=== PATIENT | female | born 1985 | race Caucasian/White ===

== ENCOUNTER 2016-09-30 08:13 | Emergency (ER) | payer OTHER ==
--- NOTE | 2016-09-30 09:03 | UC ---
Lower Extremity/Ankle HPI - HPI Summary HPI Summary: SUDDEN ONSET OF RIGHT GREAT TOE PAIN YESTERDAY. HAS REDNESS AND SWELLING. DENIES ANY INJURY OR TRAUMA. NO H/O PREVIOUS RIGHT GREAT TOE/FOOT INJURIES. NO H /O GOUT. HAS PAIN WHEN WALKING AND STANDING ON IT. - History of Current Complaint Chief Complaint: UCLowerExtremity Stated Complaint: FOOT INJURY Time Seen by Provider: 09/30/16 08:57 Hx Obtained From: Patient Hx Last Menstrual Period: 09/19/16 Onset/Duration: Sudden Onset, Lasting Days, Still Present Severity Initially: Moderate Severity Currently: Moderate Pain Intensity: 9 Pain Scale Used: 0-10 Numeric Aggravating Factor(s): Standing, Ambulation Alleviating Factor(s): Rest Able to Bear Weight: Yes - Allergies/Home Medications Allergies/Adverse Reactions: Allergies Allergy/AdvReac Type Severity Reaction Status Date / Time Cefaclor [From Ceclor] Allergy Unknown Unknown Verified 06/30/16 09:54 Reaction Details PMH/Surg Hx/FS Hx/Imm Hx Respiratory History Of: Reports: Asthma - ON INHALERS Psychological History Of: Denies: Anxiety, Depression - Surgical History Surgical History: Yes Surgery Procedure, Year, and Place: -2010 [facility], [place] IMPLANT[place] - Family History Known Family History: Negative: Hypertension - Social History Alcohol Use: Rare Substance Use Type: None Smoking Status (MU): Never Smoked Tobacco Review of Systems Constitutional: Negative Skin: Other - RIGHT FOOT REDNESS Respiratory: Negative Cardiovascular: Negative Gastrointestinal: Negative Musculoskeletal: Arthralgia, Decreased ROM, Edema All Other Systems Reviewed And Are Negative: Yes Physical Exam Triage Information Reviewed: Yes Appearance: Well-Appearing, No Pain Distress, Well-Nourished Vital Signs: Initial Vital Signs Temp 98.1 F 09/30/16 08:22 Pulse 84 09/30/16 08:22 Resp 18 09/30/16 08:22 BP 114/81 09/30/16 08:22 Pulse Ox 98 09/30/16 08:22 Vital Signs Reviewed: Yes Eyes: Positive: Conjunctiva Clear ENT: Positive: Hearing grossly normal Neck: Positive: Supple Respiratory: Positive: No respiratory distress, No accessory muscle use Cardiovascular: Positive: Pulses Normal - 2+ DP PULSES Abdomen Description: Positive: Soft Musculoskeletal: Positive: ROM Limited @ - RIGHT TOES, Edema @ - RIGHT GREAT TOE AND RIGHT 2ND TOE, Other: - TTP RIGHT GREAT TOE Neurological: Positive: Alert Psychological: Positive: Age Appropriate Behavior Skin: Positive: Other - ERYTHEMA OF ENTIRE RIGHT FOOT Diagnostics - Radiology RIGHT GREAT TOE XRAY Xray Interpretation: Positive (See Comments) - MILD SOFT TISSUE SWELLING BUT NO FRACTURE Radiology Interpretation Completed By: Radiologist Lower Extremity Course/Dx - Differential Dx/Diagnosis Differential Diagnosis/HQI/PQRI: Cellulitis, Contusion, Gout, Sprain Provider Diagnoses: RIGHT GREAT TOE PAIN Discharge - Discharge Plan Condition: Stable Disposition: HOME Prescriptions: Indomethacin CAP* [Indocin CAP*] 50 mg PO TID #15 cap Patient Education Materials: Gout (ED) Referrals: Kelly Roberts NP [Primary Care Provider] - 2 Weeks Additional Instructions: UNCLEAR CAUSE OF YOUR TOE PAIN. YOU MAY HAVE GOUT ALTHOUGH YOU ARE NOT IN THE TYPICAL DEMOGRAPHIC FOR THIS CONDITION. ONCE YOU ARE SYMPTOM FREE FOR ABOUT 2 WEEKS I WOULD RECOMMEND LAB WORK TO EVALUATE FURTHER FOR GOUT. XRAY WAS NEGATIVE FOR FRACTURE. IT MAY BE A CELLULITIS (SKIN INFECTION) ALTHOUGH THERE IS NO CLEAR REASON FOR THIS EITHER. IF YOUR SYMPTOMS DO NOT IMPROVE WITH THE ANTI-INFLAMMATORIES, REST AND TIME I WOULD CONSIDER ANTIBIOTICS. I AM WORKING NEXT MONDAY FROM 2:30PM - 10PM. PLEASE CALL ME HERE IF YOU ARE NOT IMPROVED.
--- NOTE | 2016-09-30 09:55 | RAD ---
Indication: RIGHT great toe pain and numbness for one day. No preceding injury. Comparison: None. Technique: 3 views RIGHT great toe REPORT AND IMPRESSION: Normal articular alignment and preserved joint spaces without arthropathic change. Negative for fracture or focal osseous lesion. Mild nonfocal soft tissue swelling. No conspicuous foreign body evident.
[2016-09-30 11:10] VITALS: BP 136/73
== END 2016-09-30 11:02 | disposition home or self-care (01) ==
LOC: UCEAST 08:13
DX: M79.674 Pain in right toe(s) (principal)
CPT/HCPCS: 99213; G0463

== ENCOUNTER 2017-02-04 16:48 | Emergency (ER) | payer OTHER ==
[2017-02-04 16:55] VITALS: BP 141/91
[2017-02-04] MEDS ORDERED: Albuterol 2.5 MG/3 ML NEB.SOL* (0.083%) INH ONE (17:01)
[2017-02-04] MEDS ORDERED: Ipratropium 0.5MG/2.5ML NEB* 0.5 MG/2.5 ML NEB.SOLN INH ONE (17:01)
--- NOTE | 2017-02-04 17:22 | UC ---
Respiratory Complaint HPI - HPI Summary HPI Summary: 1 WEEK OF COUGH, CONGESTION, SINUS PRESSURE AND WHEEZE. LUNGS FEEL TIGHT. HAS ASTHMA AND HAS BEEN USING HER INHALER MORE AND MORE. TODAY WAS USING IT EVERY HOUR WITH ONLY MILD TRANSIENT RELIEF. NO FEVER, N/V. MILD ST WITH COUGH. - History of Current Complaint Chief Complaint: UCRespiratory Stated Complaint: ASTHMA,DIFFICULTY BREATHING Time Seen by Provider: 02/04/17 16:59 Hx Obtained From: Patient Hx Last Menstrual Period: today Onset/Duration: Gradual Onset, Lasting Days, Still Present Timing: Constant Severity Initially: Moderate Severity Currently: Moderate Pain Intensity: 0 Pain Scale Used: 0-10 Numeric Character: Cough: Nonproductive Aggravating Factors: Nothing Alleviating Factors: Nothing Associated Signs And Symptoms: Positive: Wheezing, URI, Nasal Congestion, Hoarseness, Sinus Discomfort - Allergies/Home Medications Allergies/Adverse Reactions: Allergies Allergy/AdvReac Type Severity Reaction Status Date / Time [facility] Allergy Unknown Unknown Verified 02/04/17 16:56 Reaction Details PMH/Surg Hx/FS Hx/Imm Hx Respiratory History: Asthma - Surgical History Surgical History: Yes Surgery Procedure, Year, and Place: -2010 [facility], [place] [facility]PL[place] - Family History Known Family History: Negative: Hypertension - Social History Alcohol Use: None Substance Use Type: None Smoking Status (MU): Never Smoked Tobacco Review of Systems Constitutional: Negative ENT: Sore Throat, Nasal Discharge Respiratory: Cough, Other - WHEEZE Cardiovascular: Negative Gastrointestinal: Negative All Other Systems Reviewed And Are Negative: Yes Physical Exam Triage Information Reviewed: Yes Appearance: Well-Appearing, No Pain Distress, Well-Nourished Vital Signs: Initial Vital Signs Temp 98.2 F 02/04/17 16:53 Pulse 87 02/04/17 16:53 Resp 12 02/04/17 16:53 BP 141/91 02/04/17 16:53 Pulse Ox 99 02/04/17 16:53 Vital Signs Reviewed: Yes Eyes: Positive: Conjunctiva Clear ENT: Positive: Hearing grossly normal Neck: Positive: Supple, Nontender, No Lymphadenopathy Respiratory: Positive: No respiratory distress, No accessory muscle use, Decreased breath sounds, Wheezing - MILD DIFFUSE Cardiovascular Exam: Normal Abdomen Description: Positive: Soft Musculoskeletal: Positive: No Edema Neurological: Positive: Alert Psychological: Positive: Age Appropriate Behavior Skin: Negative: rashes UC Diagnostic Evaluation - Laboratory O2 Sat by Pulse Oximetry: 99 Re-Evaluation - Re-Evaluation First Eval Re-Evaluation Time: 17:40 - FEELS BETTER AFTER DUONEB Change: Improved Respiratory Course/Dx - Differential Dx/Diagnosis Provider Diagnoses: 1. ASTHMA EXACERBATION. 2. 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 TAKE FOR THE FULL COURSE. PREDNISONE TO HELP WITH AIRWAY INFLAMMATION. USE YOUR ALBUTEROL AT HOME PRESCRIBED. FOLLOW-UP WITH YOUR PCP IF YOU ARE NOT IMPROVING EXPECTED.
[2017-02-04] MEDS ORDERED: predniSONE TAB* 20 MG PO ONE (17:43)
[2017-02-04] MEDS ORDERED: Azithromycin TAB* 250 MG PO ONE (17:43)
== END 2017-02-04 17:54 | disposition home or self-care (01) ==
LOC: UCEAST 16:48
DX: J45.901 Unspecified asthma with (acute) exacerbation (principal); J06.9 Acute upper respiratory infection, unspecified
CPT/HCPCS: 99213; A9270-GY; G0463; J7512; J7644

== ENCOUNTER 2017-12-01 17:39 | Emergency (ER) | payer OTHER ==
--- OUTSIDE RECORDS SUMMARY | 2017-12-01 17:44 | XMS REPORT ---
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 Frederick Rasheed III, MD Primary Care Physician Unavailable Payers Type Date Identification Numbers Payment Provider Subscriber Commercial Policy Number: [id number] [facility] Yenny Castaneda PayID: [id number] [address] [place] [address] Problems Date Description Provider Status Onset: 03/22/2012 Asthma without status asthmaticus Active Onset: 03/22/2012 Primary thrombocytopenia Active Onset: 03/17/2017 Allergic rhinitis due to pollen Allan Rowell MD Active Onset: 03/17/2017 Allergic rhinitis Allan Rowell MD Active Onset: 03/17/2017 Exacerbation of moderate persistent Allan Rowell MD Active asthma Family History Date Family Member(s) Problem(s) Comments General No Current Problems Social History Type Date Description Comments Home Environment Does not have an air conditioner Home Environment There is no basement Home Environment The floors are carpeted Home Environment There are draperies in the home Home Environment Uses propane gas heating Smoke-Free Home is smoke-free Pets None Smoking Patient has never smoked Smoking Second Hand Smoke Exposure In The Boyfriend smokes outside Home Allergies, Adverse Reactions, Alerts Date Description Reaction Status Severity Comments 12/16/2011 Cefaclor active Medications Medication Date Status Form Strength Qnty SIG Indications Ordering Provider Flonase 05/15/ Active Suspension 50mcg/Act 29.7m 2 puffs Christopher Allergy 2017 l each A. Rowell, MD Relief nostril every day Breo Ellipta 03/17/ Active Aerosol 200-25mcg 1inha inhale one J30.1 Ilanopher 2017 /Inh ler puff once a Ian Rowell MD day Xyzal 03/17/ Active Tablets 5mg 30tab take 1 J30.1 Allan Allergy 24HR 2016 s tablet (5 Ian Rowell MD mg) by oral route once daily as needed Albuterol 07/08/ Active Nebulizer 1.25mg/3M 180un one ampule Christopher Sulfate 2014 L its every 2-4 Ian Rowell MD hours as needed for sob. Ventolin HFA / Active Aerosol 108(90Bas 8gm inhale 2 Christopher 0000 e) puffs by Ian Rowell MD mcg/Act inhalation route every 4 hours as needed Flonase 04/28/ Hx Suspension 50mcg/Act 1unit 2 puffs J30.1 Pradiper Allergy 2016 - s each Ian Rowell MD Relief 05/15/ nostril 2017 every day Prednisone 03/17/ Hx Tablets 5mg 100ta as directed J30.1 Pradiper 2017 - bs Ian Rowell MD 2016 Mometasone 03/17/ Hx Suspension 50mcg/Act 51gm instill 2 J30.1 Ilanopher Furoate 2017 - sprays into Ian Rowell MD 04/28/ each 2017 nostril once daily Prednisone 02/27/ Hx Tablets 20mg 30tab 2 by mouth Kathya GUSTAFSON 2017 - s every day Frederick Singh MD 03/13/ for 4 days, 2016 then reduce to 1 a day for 10 days Cetirizine 02/27/ Hx Tablets 10mg 30tab 1 by mouth J45.901 LAVINIA Rasheed III 2017 - s every day Frederick Singh MD 2016 Flovent HFA 07/20/ Hx Aerosol 110mcg/Ac 1unit 2 puffs J45.30 Alejandra 2017 - t s twice daily IMANI Mendoza 2016 Proair HFA / Hx Aerosol 108(90Bas 8.500 2 puffs by Alejandra 0000 - e) units mouth every IMANI Mendoza 03/17/ mcg/Act 4 hours as 2017 needed Immunizations CPT Code Status Date Vaccine Lot # [id number] Given 03/31/2016 Fluarix Quadrivalent, Preservative Free 0.5mL 84118 Given 05/27/2013 Influenza Virus Vaccine Split Virus 3Yr Older [id number] Q2037 Given 05/11/2012 Influenza Vaccine (Fluvirin) 3 Years Of Age Or Older 35647 Given 05/11/2012 Pneumococcal Vaccine 2Yrs Or Older [id number] 85225 Given 05/11/2012 Influenza Virus Split 3 Yrs And Above For Intramuscular Use Vital Signs Date Vital Result Comment 11/22/2017 Height 62 inches 5'2" Weight 208.00 lb BMI (Body Mass Index) 38.0 kg/m2 04/28/2017 BP Systolic 126 mmHg BP Diastolic 83 mmHg Height 62 inches 5'2" Weight 211.00 lb BMI (Body Mass Index) 38.6 kg/m2 Heart Rate 89 /min Respiratory Rate 16 /min Body Temperature 98.8 F O2 % BldC Oximetry 98 % 03/17/2017 Height 62 inches 5'2" Weight 211.00 lb BMI (Body Mass Index) 38.6 kg/m2 Respiratory Rate 18 /min 02/27/2017 Weight 211.12 lb Heart Rate 103 /min Body Temperature 98.0 F O2 % BldC Oximetry 97 % 12/01/2016 BP Systolic 112 mmHg BP Diastolic 66 mmHg Weight 204.00 lb Heart Rate 76 /min Body Temperature 97.7 F O2 % BldC Oximetry 98 % 11/21/2016 Heart Rate 74 /min Body Temperature 98.4 F O2 % BldC Oximetry 97 % Results Test Date Test Result H/L Range Note Order 03/24/2017 Skin Test Seasonal and <pending> Environmental Laboratory test 03/17/2017 Ige Total <pending> finding CBC Auto Diff 12/01/2016 Abs Basophils 0 10^3/uL 0-0.2 Abs Eosinophils 0.4 10^3/uL 0-0.6 Abs Lymphocytes 1.2 10^3/uL 1.0-4.8 Abs Monocytes 1.0 10^3/uL High 0-0.8 Abs Neutrophils 5.4 10^3/uL 1.5-7.7 Abs Nucleated RBC 0 10^3/uL Basophil % 0.4 % 0-2 Eosinophil % 5.4 % 0-6 Granulocyte % 66.9 % 38-83 Hematocrit 40 % 35-47 Hemoglobin 13.2 g/dL 12.0-16.0 Lymphocyte % 14.7 % Low 25-47 Mean Corpuscular HGB Conc 33 g/dL 31-36 Mean Corpuscular Hemoglobin 27 pg 27-31 Mean Corpuscular Volume 82 fL 80-97 Mean Platelet Volume 11 um3 High 7.4-10.4 Monocyte % 12.6 % High 1-9 Nucleated Red Blood Cells % 0 1 Platelet Count 205 10^3/uL 150-450 Red Blood Count 4.85 10^6/uL 4.0-5.4 Red Cell Distribution Width 13 % 10.5-15 White Blood Count 8.0 10^3/uL 3.5-10.8 Procedures Date CPT Code Description Status 04/28/2017 93004 Nitric Oxide Gas Determination Completed 03/24/2017 64945 Allergy Tests Percutaneous W/ Allergenic Extracts Completed 03/17/2017 68407 Nitric Oxide Gas Determination Completed 03/17/2017 05199 Bronchodilation Responsiveness Spirometry Pre/Post Completed Bronchodil Adm Encounters Type Date Location Provider CPT E/M Dx Office Visit 04/28/2017 8:45[place] [address] J30.1 J30.89 J45.41 Office Visit 03/17/2017 9:30[place] [address] J30.1 J30.89 J45.41 Plan of Care 04/28/2017 - Allan Rowell MDJ30.1 Allergic rhinitis due to pollenNew Medication:Flonase Allergy Relief 50 mcg/ActJ30.89 Other allergic yozmvqciW82.41 Moderate persistent asthma with (acute) exacerbation
--- OUTSIDE RECORDS SUMMARY | 2017-12-01 17:44 | XMS REPORT ---
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 Frederick Rasheed III, MD Primary Care Physician Unavailable Payers Type Date Identification Numbers Payment Provider Subscriber Commercial Policy Number: [id number] [facility] Yenny Castaneda PayID: [id number] [address] [place] [address] Problems Date Description Provider Status Onset: 03/22/2012 [...] CPT Code Status Date Vaccine Lot # [id number] Given 03/31/2016 Fluarix Quadrivalent, Preservative Free 0.5mL 02453 Given 05/27/2013 Influenza Virus Vaccine Split Virus 3Yr Older [id number] Q2037 Given 05/11/2012 Influenza Vaccine (Fluvirin) 3 Years Of Age Or Older 79904 Given 05/11/2012 Pneumococcal Vaccine 2Yrs Or Older [id number] 85219 Given 05/11/2012 Influenza Virus Split 3 Yrs [...] Date Test Result H/L Range Note Order 11/22/2017 Nitric Oxide <pending> PFT Supplies <pending> PFT With Bronchodilator <pending> Order 03/24/2017 Skin Test Seasonal and <pending> [...] 3.5-10.8 Procedures Date CPT Code Description Status 11/22/2017 61338 Nitric Oxide Gas Determination Completed 11/22/2017 81925 Bronchodilation Responsiveness Spirometry Pre/Post Completed Bronchodil Adm 04/28/2017 93592 Nitric Oxide Gas Determination Completed 03/24/2017 76263 Allergy Tests Percutaneous W/ Allergenic Extracts Completed 03/17/2017 77729 Nitric Oxide Gas Determination Completed 03/17/2017 84546 Bronchodilation Responsiveness Spirometry Pre/Post Completed Bronchodil Adm Encounters Type Date Location Provider CPT E/M Dx Office Visit 11/22/2017 2:00p [place] David 10938 J30.1 J30.89 J45.41 Office Visit 04/28/2017 8:45[place] [address] J30.1 J30.89 J45.41 Office Visit 03/17/2017 9:30[place] [address] J30.1 J30.89 J45.41 Plan of Care Future Appointment(s):05/30/2018 10:00 am - [facility] at [facility]/22/2017 - [place] DavidJ30.1 Allergic rhinitis due to lgucxgW33.89 Other allergic isuzhslzH72.41 Moderate persistent asthma with (acute) exacerbationComments:Patient's PFT is showing mild obstruction and exhaled nitric oxide is slightly elevated at 39 ppb. Patient to restart Breo for prophylaxis of her lungs and Ventolin for breakthrough chest symptoms. Patient to use Flonase for prophylaxis of her nose and Xyzal for breakthrough nasal symptoms.We want the patient to repeat the PFT in one month.Follow up:one month , PFT and NIOX prior
[2017-12-01 17:49] VITALS: BP 133/84
--- NOTE | 2017-12-01 18:16 | UC ---
León Granados Elizabeth, scribed for Frederick Mratínez MD on 12/01/17 at 1808 . Respiratory Complaint HPI - HPI Summary HPI Summary: This patient is a 32 year old F presenting to [facility] with a chief complaint of sore throat since 1 day ago. The patient rates the pain 6/10 in severity. Symptoms aggravated by coughing. Symptoms alleviated by nothing. Patient reports dry cough, hoarse voice, and wheezing. Patient denies fever and chills. Patient has hx of asthma and URIs. The patient takes asthma medications. - History of Current Complaint Chief Complaint: UCRespiratory Stated Complaint: ASTHMA Time Seen by Provider: 12/01/17 18:00 Hx Obtained From: Patient Hx Last Menstrual Period: 10/31/17 Onset/Duration: Gradual Onset - 1 day ago, Lasting Days - 1 day, Still Present Timing: Constant Severity Initially: Mild Severity Currently: Mild Pain Intensity: 6 Pain Scale Used: 0-10 Numeric Character: Cough: Nonproductive Aggravating Factors: Other - cough Alleviating Factors: Nothing Associated Signs And Symptoms: Positive: Dyspnea, Hoarseness - Allergies/Home Medications Allergies/Adverse Reactions: Allergies Allergy/AdvReac Type Severity Reaction Status Date / Time cefaclor Allergy Unknown Unknown Verified 12/01/17 18:02 Reaction Details Home Medications: Home Medications Fluticasone/Vilanterol [Breo Ellipta 200-25 Mcg INH] 1 each 12/01/17 [History] PMH/Surg Hx/FS Hx/Imm Hx Respiratory History: Asthma - Surgical History Surgical History: Yes Surgery Procedure, Year, and Place: -2010 [facility], [place] TUBE IMPLANTS - Family History Known Family History: Positive: Other - asthma, weakness Negative: Hypertension - Social History Alcohol Use: None Substance Use Type: None Smoking Status (MU): Never Smoked Tobacco Review of Systems Constitutional: Negative - NEGATIVE FEVER, NEGATIVE CHILLS ENT: Sore Throat Respiratory: Cough Gastrointestinal: Negative - NEGATIVE VOMITING All Other Systems Reviewed And Are Negative: Yes Physical Exam - Summary Physical Exam Summary: VITAL SIGNS: Reviewed. GENERAL: Patient is a well-developed and nourished FEMALE who is lying comfortable in the stretcher. Patient is not in any acute respiratory distress. HEAD AND FACE: Normocephalic EYES: PERRLA, EOMI x 2. EARS: Hearing grossly intact. MOUTH: Oropharynx within normal limits. NECK: Supple, trachea is midline, no adenopathy, no JVD, no carotid bruit. CHEST: Symmetric, no tenderness at palpation LUNGS: Clear to auscultation bilaterally. No wheezing or crackles. CVS: Regular rate and rhythm, S1 and S2 present, no murmurs or gallops appreciated. ABDOMEN: Soft, non-tender. Bowel sounds are normal. No abdominal abnormal pulsations. EXTREMITIES: Full ROM in all major joints, no edema, no cyanosis or clubbing. NEURO: Alert and oriented x 3. No acute neurological deficits. Speech is normal and follows commands. SKIN: Dry and warm Triage Information Reviewed: Yes Vital Signs: Initial Vital Signs Temp 98.2 F 12/01/17 17:43 Pulse 91 12/01/17 17:43 Resp 18 12/01/17 17:43 BP 133/84 12/01/17 17:43 Pulse Ox 97 12/01/17 17:43 Vital Signs Reviewed: Yes Diagnostic Evaluation - Laboratory O2 Sat by Pulse Oximetry: 97 Respiratory Course/Dx - Course Course Of Treatment: This patient is a 32-year-old female who presents to the with a chief complaint of intermittent wheezing, dry cough, no fever, no chills the last couple days. And the arching care the patient is asymptomatic. I believe that the patient may benefit of prednisone and continued taking her medications. I discussed all the findings and test results with the patient and Patient was instructed to return to the or go to the ED if develops any fever, increase sore throat unable to swallow, drooling, unable to open their mouth, or any other symptoms. The patient understands and agrees. Plan of care was discussed with the patient and understands and agrees. All questions were answered at patient satisfaction. There were no further complaints or concerns. Patient is A + O X 3. hemodynamically stable. - Differential Dx/Diagnosis Differential Diagnosis/HQI/PQRI: Asthma, Bronchitis, Sinusitis Provider Diagnoses: asthma Discharge - Sign-Out/Discharge Documenting (check all that apply): Discharge/Admit/Transfer - Discharge Plan Condition: Stable Disposition: HOME Prescriptions: predniSONE TAB* [Deltasone 20 MG TAB*] 40 mg PO DAILY #10 tab Patient Education Materials: Asthma (DC) Referrals: Kelly Roberts NP [Primary Care Provider] - Additional Instructions: Take medications as instructed Increase your fluid intake Return to the UC if symptoms worsen - Billing Disposition and Condition Condition: STABLE Disposition: HOME The documentation as recorded by the León whelan Elizabeth accurately reflects the service I personally performed and the decisions made by me, Frederick Martínez MD.
== END 2017-12-01 18:15 | disposition home or self-care (01) ==
LOC: UCEAST 17:39
DX: J45.909 Unspecified asthma, uncomplicated (principal); Z88.1 Allergy status to other antibiotic agents
CPT/HCPCS: 99212; G0463

== ENCOUNTER 2017-12-31 20:11 | Emergency (ER) | payer OTHER ==
--- OUTSIDE RECORDS SUMMARY | 2017-12-31 20:17 | XMS REPORT ---
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 Frederick Rasheed III, MD Primary Care Physician Unavailable Payers Type Date Identification Numbers Payment Provider Subscriber Commercial Policy Number: [id number] [facility] Yenny Castaneda PayID: [id number] [address] [place] [address] Problems Date Description Provider Status Onset: 03/22/2012 [...] CPT Code Status Date Vaccine Lot # [id number] Given 03/31/2016 Fluarix Quadrivalent, Preservative Free 0.5mL 92214 Given 05/27/2013 Influenza Virus Vaccine Split Virus 3Yr Older [id number] Q2037 Given 05/11/2012 Influenza Vaccine (Fluvirin) 3 Years Of Age Or Older 29657 Given 05/11/2012 Pneumococcal Vaccine 2Yrs Or Older [id number] 13951 Given 05/11/2012 Influenza Virus Split 3 Yrs And Above For Intramuscular Use Vital Signs Date Vital Result Comment 12/27/2017 BP Systolic 108 mmHg BP Diastolic 64 mmHg Height 62 inches 5'2" Weight 209.00 lb BMI (Body Mass Index) 38.2 kg/m2 Heart Rate 65 /min Respiratory Rate 18 /min Body Temperature 98.3 F O2 % BldC Oximetry 98 % 11/22/2017 Height 62 inches 5'2" Weight 208.00 [...] Test Seasonal and <pending> Environmental Laboratory test finding 03/17/2017 Ige Total <pending> CBC Auto Diff 12/01/2016 Abs Basophils 0 [...] Procedures Date CPT Code Description Status 11/22/2017 83839 Nitric Oxide Gas Determination Completed 11/22/2017 44930 Nitric Oxide Gas Determination Completed 11/22/2017 92731 Bronchodilation Responsiveness Spirometry Pre/Post Completed Bronchodil Adm 11/22/2017 61350 Bronchodilation Responsiveness Spirometry Pre/Post Completed Bronchodil Adm 04/28/2017 73310 Nitric Oxide Gas Determination Completed 03/24/2017 89818 Allergy Tests Percutaneous W/ Allergenic Extracts Completed 03/17/2017 68513 Nitric Oxide Gas Determination Completed 03/17/2017 49349 Bronchodilation Responsiveness Spirometry Pre/Post Completed Bronchodil Adm Encounters Type Date Location Provider CPT E/M Dx Office Visit 11/22/2017 2:00p [place] [address] J30.1 J30.89 J45.41 Office Visit 04/28/2017 8:45[place] [address] J30.1 J30.89 J45.41 Office Visit 03/17/2017 9:30[place] [address] J30.1 J30.89 J45.41 Plan of Care No Information Available
--- OUTSIDE RECORDS SUMMARY | 2017-12-31 20:17 | XMS REPORT ---
:1985 External Reference #:[id number] Author Organization [facility] Address [address] [place] [address] Phone [phone] Care Team Providers Name Role Phone Frederick Rasheed III, MD Care Team Information Digital Marketing Analyst Unavailable Frederick Rasheed III, MD Primary Care Physician Unavailable Payers Type Date Identification Numbers Payment Provider Subscriber Commercial Policy Number: [id number] [facility] Yenny Castaneda PayID: [id number] [address] [place] [address] Problems Date Description Provider Status Onset: 03/22/2012 [...] 2 puffs [facility] 2017 l each Ian Rowell MD Relief nostril every day Breo Ellipta [...] Hx Suspension 50mcg/Act 51gm instill 2 J30.1 Pradiper Furoate 2017 - sprays into Ian Rowell MD 04/28/ each 2017 nostril once daily Prednisone 02/27/ Hx Tablets 20mg 30tab 2 by mouth Kathya GUSTAFSON 2017 - s every day Frederick Singh MD 03/13/ for 4 days, 2017 then reduce to 1 a day for 10 days Cetirizine 02/27/ Hx Tablets 10mg 30tab 1 by mouth J45.901 LAVINIA Rasheed III 2017 - s every day Frederick Singh MD 2016 Flovent HFA 07/20/ Hx Aerosol 110mcg/Ac 1unit 2 puffs J45.30 Alejandra 2017 - t s twice daily IMANI Mendoza 2016 Proair HFA / Hx Aerosol 108(90Bas 8.500 2 puffs by Alejandra, 0000 - e) units mouth every IMANI Mendoza 03/17/ mcg/Act 4 hours as 2017 needed Immunizations CPT Code Status Date Vaccine Lot # 25235 Given 03/31/2016 Fluarix Quadrivalent, Preservative Free 0.5mL 30235 Given 05/27/2013 Influenza Virus Vaccine Split Virus 3Yr Older 49895-696-61 Q2037 Given 05/11/2012 Influenza Vaccine (Fluvirin) 3 Years Of Age Or Older 43070 Given 05/11/2012 Pneumococcal Vaccine 2Yrs Or Older 7502-1196-90 [id number] Given 05/11/2012 Influenza Virus Split 3 Yrs [...] 3.5-10.8 Procedures Date CPT Code Description Status 12/27/2017 04413 Nitric Oxide Gas Determination Completed 12/27/2017 50150 Bronchodilation Responsiveness Spirometry Pre/Post Completed Bronchodil Adm 11/22/2017 03146 Nitric Oxide Gas Determination Completed 11/22/2017 15016 Nitric Oxide Gas Determination Completed 11/22/2017 05218 Bronchodilation Responsiveness Spirometry Pre/Post Completed Bronchodil Adm 11/22/2017 21011 Bronchodilation Responsiveness Spirometry Pre/Post Completed Bronchodil Adm 04/28/2017 13753 Nitric Oxide Gas Determination Completed 03/24/2017 42265 Allergy Tests Percutaneous W/ Allergenic Extracts Completed 03/17/2017 67897 Nitric Oxide Gas Determination Completed 03/17/2017 13703 Bronchodilation Responsiveness Spirometry Pre/Post Completed Bronchodil Adm Encounters Type Date Location Provider CPT E/M Dx Office Visit 12/27/2017 9:30a [facility] [address]01 J30.1 J30.89 J45.41 Office Visit 11/22/2017 2:00p [place] 10014 J30.1 J30.89 J45.41 Office Visit 04/28/2017 8:45[place] [address] J30.1 J30.89 J45.41 Office Visit 03/17/2017 9:30a [place] [address] J30.1 J30.89 J45.41 Plan of Care Future Appointment(s):06/29/2018 10:00 am - [id number]/27/2017 - [facility] DavidJ30.1 Allergic rhinitis due to jevezuA94.89 Other allergic cjiqavkaD63.41 Moderate persistent asthma with (acute) exacerbationComments: Patient's PFT is within normal limits and exhaled nitric oxide is slightly elevated at 42 ppb. Patient to continue Breo for prophylaxis of her lungs and Ventolin for breakthrough chest symptoms. Patient to continue Flonase for prophylaxis of her nose and Xyzal for breakthrough nasal symptoms.Follow up:6 months, PFT and NIOX prior
[2017-12-31 20:39] VITALS: BP 117/70
[2017-12-31] MEDS ORDERED: Ibuprofen TAB* 600 MG PO ONE (21:06)
--- NOTE | 2017-12-31 21:18 | UC ---
Upper Extremity HPI - HPI Summary HPI Summary: Constant throbbing pain in R upper outer arm starting yesterday; also occasional pain from elbow into 4th and 5th fingers with resting arm on a surface. When she lets arm hang down at her side the forearm and 4th and 5th fingers get tingly and gradually go numb. Denies any recent or distant injuries/ surgeries on neck or shoulder. - History of Current Complaint Chief Complaint: UCUpperExtremity Stated Complaint: ARM PAIN Time Seen by Provider: 12/31/17 20:54 Hx Obtained From: Patient Hx Last Menstrual Period: 12/01/17 ?: No Onset/Duration: Gradual Onset, Lasting Days Severity Initially: Mild Severity Currently: Moderate Pain Intensity: 6 Location Of Pain: Is Discrete @ Character: Dull, Aching Aggravating Factor(s): Extension - of elbow Alleviating Factor(s): Elevation Associated Signs And Symptoms: Positive: Numbness/Tingling Related History: Dominant Hand Right - Allergies/Home Medications Allergies/Adverse Reactions: Allergies Allergy/AdvReac Type Severity Reaction Status Date / Time cefaclor Allergy Unknown Unknown Verified 12/31/17 20:27 Reaction Details Home Medications: Home Medications Albuterol 2.5MG/3ML (0.083%)* [Ventolin 2.5 MG/3 ML NEB.EVAN*] 2.5 mg INH Q6H PRN 12/31/17 [History Confirmed 12/31/17] Fluticasone NASAL SPRAY 50MCG* [Flonase NASAL SPRAY 50MCG*] 2 spray BOTH NARES DAILY 12/31/17 [History Confirmed 12/31/17] Fluticasone/Vilanterol [Breo Ellipta 200-25 Mcg INH] 1 each IH BEDTIME 12/31/17 [History Confirmed 12/31/17] Ibuprofen TAB* [Motrin TAB* 600 MG] 600 mg PO Q6H PRN 12/31/17 [History Confirmed 12/31/17] Levocetirizine Dihydrochloride [Xyzal] 5 mg PO BEDTIME 12/31/17 [History Confirmed 12/31/17] PMH/Surg Hx/FS Hx/Imm Hx Previously Healthy: Yes - Surgical History Surgical History: Yes Surgery Procedure, Year, and Place: -2010 [facility], FALLOPIAN TUBE IMPLANTS 2011 - Family History Known Family History: Positive: Other - asthma, weakness Negative: Hypertension - Social History Occupation: Employed Full-time Lives: With Family Alcohol Use: None Substance Use Type: None Smoking Status (MU): Never Smoked Tobacco Review of Systems Musculoskeletal: Arthralgia Is Patient Immunocompromised?: No All Other Systems Reviewed And Are Negative: Yes Physical Exam Triage Information Reviewed: Yes Appearance: Well-Appearing, Obese Vital Signs: Initial Vital Signs Temp 99.7 F 12/31/17 20:32 Pulse 69 12/31/17 20:32 Resp 20 12/31/17 20:32 BP 117/70 12/31/17 20:32 Pulse Ox 99 12/31/17 20:32 Vital Signs Reviewed: Yes Eye Exam: Normal Eyes: Positive: Conjunctiva Clear ENT Exam: Normal ENT: Positive: Normal ENT inspection, Hearing grossly normal, Pharynx normal, TMs normal Neck exam: Normal Neck: Positive: Supple, Nontender, No Lymphadenopathy Respiratory Exam: Normal Respiratory: Positive: Chest non-tender, Lungs clear, Normal breath sounds, No respiratory distress, No accessory muscle use Cardiovascular Exam: Normal Cardiovascular: Positive: RRR, No Murmur Musculoskeletal Exam: Other - indicates pain over R deltoid area Musculoskeletal: Positive: Strength Intact, ROM Intact Neurological Exam: Normal Neurological: Positive: Alert Psychological Exam: Normal Skin Exam: Normal Diagnostics - Radiology No standard instances Xray Interpretation: No Acute Changes Radiology Interpretation Completed By: ED Physician Upper Extremity Course/Dx - Differential Dx/Diagnosis Differential Diagnosis/HQI/PQRI: Bursitis, Fracture (Open) Provider Diagnoses: R arm pain. R ulnar neuropathy Discharge - Sign-Out/Discharge Documenting (check all that apply): Discharge/Admit/Transfer - Discharge Plan Condition: Stable Disposition: HOME Patient Education Materials: Paresthesia (ED) Referrals: Kelly Roberts NP [Primary Care Provider] - 1 Week Additional Instructions: As we discussed, it appears there is pressure on a nerve that feeds your arm, likely at the level of your shoulder. You can stay active but avoid activities that give you pain or worsen your symptoms. Take ibuprofen for at least 3 days ( 600mg 2-3 times per day) and follow up with physical therapy and your primary care provider. At any time if you have sudden worsening or weakness in your arm/hand, please come back or go to the emergency department. - Billing Disposition and Condition Condition: STABLE Disposition: Home
--- NOTE | 2017-12-31 21:36 | RAD ---
Indication: Right shoulder pain. 4 views of the right shoulder demonstrates no fracture. No other bone or joint abnormality is noted. IMPRESSION: No fracture of the right shoulder is noted.
== END 2017-12-31 21:37 | disposition home or self-care (01) ==
LOC: UCEAST 20:11
DX: G56.21 Lesion of ulnar nerve, right upper limb (principal); M79.601 Pain in right arm; Z88.1 Allergy status to other antibiotic agents
CPT/HCPCS: 99212; A9270-GY; G0463

== ENCOUNTER 2018-02-19 20:33 | Emergency (ER) | payer OTHER ==
[2018-02-19 20:40] VITALS: BP 134/90
[2018-02-19] MEDS ORDERED: Albuterol/Ipratropium NEB.SOL* Albuterol 2.5 MG/Ipratropium 0.5 MG 3 ML INH ONE ×2 (20:45→21:19)
[2018-02-19] MEDS ORDERED: methylPREDNISolone 125 MG* 2 ML VIAL IM ONE (20:46)
--- NOTE | 2018-02-19 20:53 | ED ---
HPI Chest Pain - HPI Summary HPI Summary: 32-year-old female presents with shortness of breath for the past 3 days. She states she has history of asthma. States she's been taking her normal asthma medication and her shortness breath continues get worse. She denies any cough. She denies any fever. No sore throat. Denies any vomiting. No abdominal pain. She states that she gets like this every time the season change. She denies any chest pain. - History of Current Complaint Chief Complaint: UCRespiratory Time Seen by Provider: 02/19/18 20:45 Hx Last Menstrual Period: 01/31/18 Pain Intensity: 0 - Allergy/Home Medications Allergies/Adverse Reactions: Allergies Allergy/AdvReac Type Severity Reaction Status Date / Time cefaclor Allergy Unknown Unknown Verified 02/19/18 20:40 Reaction Details PMH/Surg Hx/FS Hx/Imm Hx Endocrine/Hematology History: Denies: Hx Sickle Cell Disease Cardiovascular History: Reports: Other Cardiovascular Problems/Disorders - IRREGULAR HEARTBEAT, ONE BEAT THEN HALF A BEAT Respiratory History: Reports: Hx Asthma - ON INHALERS GI History: Denies: Other GI Disorders History: Denies: Other Problems/Disorders Musculoskeletal History: Denies: Other Musculoskeletal History Sensory History: Denies: Hx Contacts or Glasses, Hx Hearing Aid Opthamlomology History: Denies: Hx Contacts or Glasses Neurological History: Denies: Other Neuro Impairments/Disorders Psychiatric History: Denies: Hx Anxiety, Hx Eating Disorder, Hx Depression, Hx of Violent Episodes Against Others - Surgical History Surgery Procedure, Year, and Place: -2010 [facility], FALLOPIAN TUBE IMPLANTS 2012 Hx Anesthesia Reactions: No Infectious Disease History: No Infectious Disease History: Denies: Hx Clostridium Difficile, Hx Hepatitis, Hx Human Immunodeficiency Virus (HIV), Hx of Known/Suspected MRSA, Hx Shingles, Hx Tuberculosis, Hx Known/ Suspected VRE, Hx Known/Suspected VRSA, History Other Infectious Disease, Traveled Outside the [place] in Last 30 Days - Family History Known Family History: Positive: Other - asthma, weakness Negative: Hypertension - Social History Alcohol Use: None Substance Use Type: Reports: None Smoking Status (MU): Never Smoked Tobacco Review of Systems Negative: Fever Negative: Chest Pain Positive: Shortness Of Breath. Negative: Cough All Other Systems Reviewed And Are Negative: Yes Physical Exam Triage Information Reviewed: Yes Vital Signs On Initial Exam: Initial Vitals Temp Pulse Resp BP Pulse Ox 98.3 F 73 18 134/90 98 02/19/18 20:36 02/19/18 20:36 02/19/18 20:36 02/19/18 20:36 02/19/18 20:36 Vital Signs Reviewed: Yes Appearance: Positive: Well-Appearing Skin: Positive: Warm, Dry Head/Face: Positive: Normal Head/Face Inspection Eyes: Positive: Normal, EOMI, [place], Conjunctiva Clear ENT: Positive: Normal ENT inspection, Pharynx normal, TMs normal Respiratory/Lung Sounds: Positive: Breath Sounds Present, Wheezes Cardiovascular: Positive: Normal, RRR Abdomen Description: Positive: Nontender, Soft Bowel Sounds: Positive: Present Musculoskeletal: Positive: Normal Neurological: Positive: Normal Psychiatric: Positive: Normal Diagnostics - Vital Signs Vital Signs Temp Pulse Resp BP Pulse Ox 02/19/18 20:36 98.3 F 73 18 134/90 98 - Laboratory Lab Statement: Any lab studies that have been ordered have been reviewed, and results considered in the medical decision making process. Re-Evaluation - Re-Evaluation First Eval Re-Evaluation Time: 21:26 Change: Improved Comment: less wheezing Second Eval Re-Evaluation Time: 21:46 Change: Improved Comment: wheezing gone Chest Pain Course/Dx - Course Course Of Treatment: 32-year-old female presents with shortness of breath for the past 3 days. She states she has history of asthma. States she's been taking her normal asthma medication and her shortness breath continues get worse. She denies any cough. She denies any fever. No sore throat. Denies any vomiting. No abdominal pain. She states that she gets like this every time the season change. She denies any chest pain. on exam has audible wheezing present. gave nebulizer and steriod and less wheezing. chest xray normal. will treat with steriod. blood pressure likely elevated due to repeat resp treatment but will have follow up with primary about such. patient understand and agrees with plan. - Chest Pain Differential Diagnosis/HQI/PQRI: Lower Respiratory Infection, Other: - asthma, bronchitis - Diagnoses Provider Diagnoses: Asthma exacerbation Discharge - Sign-Out/Discharge Documenting (check all that apply): Patient Departure All imaging exams completed and their final reports reviewed: No - Discharge Plan Condition: Stable Disposition: HOME Prescriptions: predniSONE TAB* [Deltasone TAB*] 50 mg PO DAILY #4 tab Patient Education Materials: Wheezing (ED) Referrals: Kelly Roberts NP [Primary Care Provider] - Additional Instructions: Use inhaler up to two puffs every 4 hours for cough and wheezing Take steroid once a day for 4 more days starting tomorrow Follow up with primary within 5 days Take Tylenol or ibuprofen for pain every 6 hours Return to ED if develop severe shortness of breath, worsening chest pain, or any new or worsening symptoms - Billing Disposition and Condition Condition: STABLE Disposition: Home
--- NOTE | 2018-02-20 07:46 | RAD ---
INDICATION: Shortness of breath. COMPARISON: Chest x-ray June 13, 2012 TECHNIQUE: PA and lateral views of the chest were obtained. FINDINGS: The heart and mediastinum are normal in size and contour. The lungs are grossly clear. There is no evidence of large pleural effusion. Visualized bones are normal for the patient's age. There is no radiographic evidence of free air beneath the diaphragm IMPRESSION: No radiographic evidence of acute cardiopulmonary disease. R0
--- NOTE | 2018-02-20 08:12 | UC ---
- Progress Note Progress Note: imaging reviewed - no acute process no change Re-Evaluation - Re-Evaluation First Eval Re-Evaluation Time: 21:26 Change: Improved Comment: less wheezing Second Eval Re-Evaluation Time: 21:46 Change: Improved Comment: wheezing gone Course/Dx - Diagnoses Provider Diagnoses: Asthma exacerbation Discharge - Sign-Out/Discharge Documenting (check all that apply): Post-Discharge Follow Up All imaging exams completed and their final reports reviewed: Yes - Discharge Plan Condition: Stable Disposition: HOME Prescriptions: predniSONE TAB* [Deltasone TAB*] 50 mg PO DAILY #4 tab Patient Education Materials: Wheezing (ED) Referrals: Kelly Roberts NP [Primary Care Provider] - Additional Instructions: Use inhaler up to two puffs every 4 hours for cough and wheezing Take steroid once a day for 4 more days starting tomorrow Follow up with primary within 5 days Take Tylenol or ibuprofen for pain every 6 hours Return to ED if develop severe shortness of breath, worsening chest pain, or any new or worsening symptoms - Billing Disposition and Condition Condition: STABLE Disposition: Home
== END 2018-02-19 22:00 | disposition home or self-care (01) ==
LOC: UCEAST 20:33
DX: J45.901 Unspecified asthma with (acute) exacerbation (principal); Z88.1 Allergy status to other antibiotic agents
CPT/HCPCS: 71046; 96372; 99213; A9270-GY; G0463; J2930

== ENCOUNTER 2018-04-25 20:34 | Emergency (ER) | payer OTHER ==
[2018-04-25 20:44] VITALS: BP 126/91
--- NOTE | 2018-04-25 21:20 | UC ---
Abdominal Pain Female HPI - HPI Summary HPI Summary: 32-year-old female presents with sudden onset of left lower quadrant pain. States approximately 5:00 this evening she had a brief episode of "sharp, twisting" pain to the left lower quadrant that lasted for less than a minute. States she was sitting on the couch when this occurred. The pain resolved and she was feeling okay until she had a second episode approximately 8:00 this evening that also lasted for less than 1 minute. She is presently asymptomatic. Denies fever, chills, nausea, vomiting, diarrhea, blood in stools , melena, dysuria, frequency, urgency, hematuria, abnormal vaginal bleeding, vaginal discharge, or dyspareunia. Last menstrual period was approximately 3 weeks ago. She has the Essure fallopian tube implants. - History of Current Complaint Chief Complaint: UCAbdominalPain Stated Complaint: ABD PAIN Time Seen by Provider: 04/25/18 21:05 Hx Obtained From: Patient Hx Last Menstrual Period: 04/02/18 ?: No Onset/Duration: Sudden Onset Timing: Intermittent Episodes Lasting: - 2 episodes lasting less than 1 minute each Severity Initially: Moderate Severity Currently: None Pain Intensity: 0 Location: Discrete At: LLQ Radiates: No Character: Sharp Aggravating Factor(s): Nothing Alleviating Factor(s): Nothing Associated Signs and Symptoms: Positive: Negative Allergies/Adverse Reactions: Allergies Allergy/AdvReac Type Severity Reaction Status Date / Time cefaclor Allergy Unknown Unknown Verified 04/25/18 20:45 Reaction Details PMH/Surg Hx/FS Hx/Imm Hx Previously Healthy: Yes Respiratory History: Asthma - Surgical History Surgical History: Yes Surgery Procedure, Year, and Place: -2010 [facility], FALLOPIAN TUBE IMPLANTS 2011 - Family History Known Family History: Positive: Other - asthma - Social History Occupation: Employed Full-time Lives: With Family Alcohol Use: None Substance Use Type: None Smoking Status (MU): Never Smoked Tobacco Review of Systems Constitutional: Negative Respiratory: Negative Cardiovascular: Negative Gastrointestinal: Abdominal Pain Genitourinary: Negative Is Patient Immunocompromised?: No All Other Systems Reviewed And Are Negative: Yes Physical Exam Triage Information Reviewed: Yes Appearance: Well-Appearing, No Pain Distress, Well-Nourished Vital Signs: Initial Vital Signs Temp 98.1 F 04/25/18 20:41 Pulse 85 04/25/18 20:41 Resp 18 04/25/18 20:41 BP 126/91 04/25/18 20:41 Pulse Ox 100 04/25/18 20:41 Respiratory: Positive: Lungs clear, Normal breath sounds, No respiratory distress Cardiovascular: Positive: RRR, No Murmur Abdomen Description: Positive: Nontender, No Organomegaly, Soft. Negative: CVA Tenderness (R), CVA Tenderness (L), Distended, Guarding Bowel Sounds: Positive: Present Pelvic Exam: Positive: Other - Patient deferred Neurological: Positive: Alert Skin Exam: Normal Abd Pain Female Course/Dx - Course Course Of Treatment: 32 year old female with 2 brief episodes of sharp LLQ pain earlier this evening lasting less then 1 minute each. No other symptoms and patient was assymptomatic at time of exam. Exam unremarkable. Afebrile. VSS. Discussed with patient options for further evaluation including ED vs watchful waiting. Patient is electing watchful waiting at this time which is reasonable considering she is presently assymptomatic. Warning symptoms requiring immediate evaluation in ED reviewed with patient. Verbalizes understanding and agrees with POC. - Differential Dx/Diagnosis Differential Diagnosis: Constipation, Ovarian Cyst, Renal Colic, Urinary Tract Infection, Other - Ovarian torsion Provider Diagnoses: LLQ pain Discharge - Sign-Out/Discharge Documenting (check all that apply): Patient Departure All imaging exams completed and their final reports reviewed: No Studies - Discharge Plan Condition: Stable Disposition: HOME Patient Education Materials: Acute Abdominal Pain (ED) Referrals: Kelly Roberts NP [Primary Care Provider] - Additional Instructions: Your exam in the clinic tonight was unremarkable. Since your abdominal pain has subsided and vital signs are stable it is reasonable to do some watchful waiting at this time. Seek immediate medical attention in the emergency room if you develop fever greater than 100.5 F, your abdominal pain returns, you have nausea or vomiting, abnormal vaginal bleeding, blood in your stool or dark black stools, or any new or worsening symptoms. - Billing Disposition and Condition Condition: STABLE Disposition: Home
== END 2018-04-25 21:30 | disposition home or self-care (01) ==
LOC: UCEAST 20:34
DX: R10.32 Left lower quadrant pain (principal); Z88.1 Allergy status to other antibiotic agents
CPT/HCPCS: 99211; G0463